=== PATIENT | female | born 1995 | race Caucasian/White ===

== ENCOUNTER 2020-11-18 16:05 | Emergency (ER) | payer SELFPAY ==
[~2020-11-18] VITALS: Ht 162.6 cm; Wt 74.8 kg
[2020-11-18 16:12] VITALS: BP 113/58
--- NOTE | 2020-11-18 16:27 | NUR ---
pt ambulated to bed 09.
--- NOTE | 2020-11-18 16:32 | NUR ---
24 FEMALE WITH C/O R EAR PAIN X 3 DAYS. PT STATES PAIN "FEELS LIKE PRESSURE, THROBBING, AND HER EAR IS CLOGGED." PT STATES WHEN OPEN AND CLOSES HER JAW THE PAIN FROM HER EAR RADIATES DOWN TO HER JAW. DENIES ANY CANTU, DIZZNESS, N/V. PMH: DENIES NKA
[2020-11-18] MEDS ORDERED: IBUP-2213 PO (17:01)
[2020-11-18] MEDS ORDERED: CIPR7.5S OT (17:01)
[2020-11-18] MEDS ORDERED: AMOX500C25 PO (17:01)
[2020-11-18 17:07] VITALS: BP 113/58
--- NOTE | 2020-11-18 17:07 | NUR ---
Patient discharged with v/s stable. Written and verbal after care instructions given and explained. Patient alert, oriented and verbalized understanding of instructions. Ambulatory with steady gait. All questions addressed prior to discharge. ID band removed. Patient advised to follow up with PMD. Rx of AMOXICILLIN 500 MG, CIPROFLOXACIN 7.5 ML, IBUPROFEN 600 MG given. Patient educated on indication of medication including possible reaction and side effects. Opportunity to ask questions provided and answered.
== END 2020-11-18 17:07 | disposition home or self-care (01) ==
LOC: MED 16:05
DX: H60.91 Unspecified otitis externa, right ear (principal)
CPT/HCPCS: 99283